=== PATIENT | male | born 1965 | race Caucasian/White ===

== ENCOUNTER 2023-12-03 13:17 | Outpatient (CLI) | payer BC ==
[~2023-12-03 13:17] MED LIST: Magnevist 469MG/ML 20 ML VIAL ONE
== END 2023-12-03 13:18 | disposition home or self-care (01) ==
LOC: CSHMRI 13:17
PROVIDERS: ATTEND Urology
DX: R97.20 Elevated prostate specific antigen [PSA] (principal)
CPT/HCPCS: 72197; A9579